=== PATIENT | female | born 1945 | race Caucasian/White ===

== ENCOUNTER 2019-12-03 14:42 | Inpatient (IN) ==
[2019-12-03] MEDS ORDERED: NS 0.9% 1000 ml BAG 1,000 ML IV ONE ×2 (14:45→14:46)
[2019-12-03] MEDS ORDERED: Alteplase (100 mg Vial) 100 mg VIAL ONE (14:54)
[2019-12-03] MEDS ORDERED: Labetalol IV 5 MG/ML 20 ml VIAL ONE (14:55)
[2019-12-03 15:02] LABS: ABS Basophils 0.1 10^3/ul (0-0.2); ABS Eosinophils 0.2 10^3/ul (0-0.6); ABS Lymphocytes 1.8 10^3/ul (1.0-4.8); ABS Monocytes 0.5 10^3/ul (0-0.8); ABS Neutrophils 5.8 10^3/ul (1.5-7.7); Eosinophil % 2.5 %; Hematocrit 40 % (35-47); Hemoglobin 14.1 g/dL (12.0-16.0); Lymphocyte % 21.6 %; Mean Corpuscular HGB Conc 35 g/dL (31-36); Mean Corpuscular Hemoglobin 29 pg (27-31); Mean Corpuscular Volume 83 fL (80-97); Mean Platelet Volume 6.9 fL (7.4-10.4); Platelet Count 316 10^3/uL (150-450); Red Blood Count 4.86 10^6 /uL (3.70-4.87); Red Cell Distribution Width 14 % (10-15); White Blood Count 8.4 10^3/uL (3.5-10.8)
[2019-12-03] MEDS ORDERED: Iodixanol (CONTRAST) 320 MG/ML 100 ML SDV IV ONE (15:05)
[2019-12-03] MEDS ORDERED: Labetalol IV 5 MG/ML 20 ml VIAL IV PUSH ONE (15:07)
[2019-12-03 15:15] LABS: Activated Partial Thrombo Time 29.4 seconds (26.0-38.0); INR 1.11 (0.82-1.09)
[2019-12-03 15:26] LABS: Albumin 4.2 g/dL (3.2-5.2); Albumin/Globulin Ratio 1.6 (1-3); BUN/Creatinine Ratio 17.9 (8-20); Calcium 9.6 mg/dL (8.6-10.3); EGFR African American 103.5 (>60); EGFR Non-African American 85.6 (>60); Globulin 2.7 g/dL (2-4); HDL Cholesterol 40.6 mg/dL; Potassium 3.5 mmol/L (3.5-5.0); Total Bilirubin 0.4 mg/dL (0.2-1.0); Total Protein 6.9 g/dL (6.4-8.9)
[2019-12-03] MEDS ORDERED: Alteplase (100 mg Vial) 100 MG in Premix IV 100 ML IV ONE (15:41)
[2019-12-03] MEDS ORDERED: niCARdipine 0.1MG/ML IVPREMIX 20 MG/200 ML BAG IV SCH ×2 (16:00→16:47)
[2019-12-03] MEDS: Lactated Ringers 1000 ml BAG 1,000 ML IV SCH ×2 (16:20→23:43)
[2019-12-03 16:45] LABS: Urine Appearance Clear; Urine Bilirubin Negative (Negative); Urine Blood Negative (Negative); Urine Color Straw; Urine Glucose Negative (Negative); Urine Ketones Trace (Negative); Urine Nitrite Negative (Negative); Urine Protein Negative (Negative); Urine Specific Gravity 1.016 (1.010-1.030); Urine Urobilinogen Negative (Negative)
[2019-12-03 17:56] LABS: TSH Ultra Thyroid Stim Horm 3.41 mcIU/mL (0.34-5.60)
[2019-12-03] MEDS ORDERED: Norepinephrine 16MCG/ML IVPRE 4,000 MCG/250 ML BAG IV ONE (22:59)
[2019-12-03] MEDS ORDERED: Lactated Ringers 500 ml BAG 500 ML IV ONE (23:31)
[2019-12-04 04:13] LABS: Hematocrit 38 % (35-47); Hemoglobin 13.1 g/dL (12.0-16.0); Mean Corpuscular HGB Conc 34 g/dL (31-36); Mean Corpuscular Hemoglobin 28 pg (27-31); Mean Corpuscular Volume 83 fL (80-97); Mean Platelet Volume 6.8 fL (7.4-10.4); Platelet Count 296 10^3/uL (150-450); Red Blood Count 4.61 10^6 /uL (3.70-4.87); Red Cell Distribution Width 15 % (10-15); White Blood Count 9.8 10^3/uL (3.5-10.8)
[2019-12-04 04:32] LABS: Albumin 3.1 g/dL (3.2-5.2); Calcium 8.4 mg/dL (8.6-10.3); Total Bilirubin 0.4 mg/dL (0.2-1.0)
[2019-12-04 04:38] LABS: Albumin/Globulin Ratio 1.3 (1-3); BUN/Creatinine Ratio 18.5 (8-20); EGFR African American 132.8 (>60); EGFR Non-African American 109.8 (>60); Globulin 2.3 g/dL (2-4); Total Protein 5.4 g/dL (6.4-8.9)
[2019-12-04] MEDS ORDERED: Lactated Ringers 1000 ml BAG 1,000 ML IV SCH (05:48)
[2019-12-04] MEDS ORDERED: NS 0.9% 500 ml BAG 500 ML IV SCH (06:00)
[2019-12-04] MEDS ORDERED: Lactated Ringers 500 ml BAG 500 ML IV SCH (06:00)
[2019-12-04] MEDS: NS 0.9% 1000 ml BAG 1,000 ML IV SCH ×3 (06:23→20:53)
[2019-12-04 07:11] LABS: Magnesium 1.6 mg/dL (1.9-2.7)
[2019-12-04] MEDS ORDERED: Magnesium Sulf 4 GM/100 ML IV 4,000 MG/100 ML BAG IVPB ONE (07:38)
[2019-12-04] MEDS ORDERED: Acetaminophen IV 1 GM/100ML 1,000 MG/100 ML VIAL IVPB ONE (09:19)
[2019-12-04] MEDS ORDERED: Gadoteridol (CONTRAST) 279.3 MG/ML 10 ML IV ONE (10:35)
[2019-12-04] MEDS ORDERED: oxyCODONE/Acetamin 5/325 mg TAB PO PRN (14:52)
[2019-12-04] MEDS ORDERED: hydrALAZINE 20 mg/ml 1 ML Vial IV IV SLOW PU ONE (15:36)
[2019-12-04] MEDS: Morphine 2 MG/ML SYRINGE IV PRN ×2 (16:51→19:18)
[2019-12-04] MEDS ORDERED: Ondansetron 4 mg VIAL 2 MG/ML 2 ml VIAL IV PRN (19:14)
[2019-12-05] MEDS ORDERED: hydrALAZINE 20 mg/ml 1 ML Vial IV IV SLOW PU ONE (03:02)
[2019-12-05] MEDS: NS 0.9% 1000 ml BAG 1,000 ML IV SCH (03:50)
[2019-12-05 05:37] LABS: BUN/Creatinine Ratio 21.2 (8-20); Calcium 7.9 mg/dL (8.6-10.3); EGFR African American 138.7 (>60); EGFR Non-African American 114.6 (>60); Magnesium 2.1 mg/dL (1.9-2.7); Phosphorus 2.8 mg/dL (2.5-5.0); Potassium 3.3 mmol/L (3.5-5.0)
[2019-12-05] MEDS ORDERED: Potassium Chlor 20 meq TAB.ER PO ONE (06:37)
[2019-12-05] MEDS ORDERED: Metoprolol Tartrate 5 mg VIAL 5 ml VIAL (1 mg/ml) IV PRN (08:55)
[2019-12-05] MEDS ORDERED: Adenosine 3 MG/ML 2 ml VIAL (6 mg) ONE (08:57)
[2019-12-05] MEDS ORDERED: Metoprolol Tartrate 5 mg VIAL 5 ml VIAL (1 mg/ml) ONE (08:57)
[2019-12-05] MEDS: Morphine 2 MG/ML SYRINGE IV PRN (09:45)
[2019-12-05] MEDS ORDERED: oxyCODONE/Acetamin 5/325 mg TAB PO PRN (10:44)
[2019-12-05] MEDS: hydrALAZINE 20 mg/ml 1 ML Vial IV IV SLOW PU PRN (15:47)
[2019-12-06] MEDS: hydrALAZINE 20 mg/ml 1 ML Vial IV IV SLOW PU PRN (00:07)
[2019-12-06] MEDS: Morphine 2 MG/ML SYRINGE IV PRN (01:37)
[2019-12-06 08:01] LABS: Calcium 8.6 mg/dL (8.6-10.3); Magnesium 1.9 mg/dL (1.9-2.7); Potassium 3.8 mmol/L (3.5-5.0)
[2019-12-06 08:07] LABS: BUN/Creatinine Ratio 23.6 (8-20); EGFR Non-African American 107.5 (>60)
[2019-12-06] MEDS ORDERED: Potassium Chlor 20 meq TAB.ER PO ONE (14:02)
[2019-12-06] MEDS ORDERED: Senna TAB 8.6 mg TAB PO PRN (15:43)
[2019-12-06] MEDS ORDERED: Magnesium Hydroxide LIQ 30 ML UDC PO PRN (15:43)
[2019-12-06] MEDS ORDERED: Magnesium Hydroxide LIQ 30 ML UDC PO SCH (21:00)
[2019-12-06] MEDS: Heparin 5000 UNITS/ML 1 mL VIAL SUBCUT SCH (21:26)
[2019-12-07 06:34] LABS: ABS Basophils 0.1 10^3/ul (0-0.2); ABS Eosinophils 0.3 10^3/ul (0-0.6); ABS Lymphocytes 1.6 10^3/ul (1.0-4.8); ABS Monocytes 0.6 10^3/ul (0-0.8); ABS Neutrophils 6.2 10^3/ul (1.5-7.7); Eosinophil % 3.6 %; Hematocrit 36 % (35-47); Hemoglobin 12.6 g/dL (12.0-16.0); Lymphocyte % 17.9 %; Mean Corpuscular HGB Conc 35 g/dL (31-36); Mean Corpuscular Hemoglobin 29 pg (27-31); Mean Corpuscular Volume 83 fL (80-97); Mean Platelet Volume 7.1 fL (7.4-10.4); Platelet Count 269 10^3/uL (150-450); Red Blood Count 4.33 10^6 /uL (3.70-4.87); Red Cell Distribution Width 15 % (10-15); White Blood Count 8.7 10^3/uL (3.5-10.8)
[2019-12-07 08:23] LABS: Calcium 8.3 mg/dL (8.6-10.3); Magnesium 2.1 mg/dL (1.9-2.7); Potassium 3.7 mmol/L (3.5-5.0)
[2019-12-07 08:29] LABS: BUN/Creatinine Ratio 26.2 (8-20); EGFR African American 115.4 (>60); EGFR Non-African American 95.4 (>60)
[2019-12-07] MEDS: Heparin 5000 UNITS/ML 1 mL VIAL SUBCUT SCH (09:11)
[2019-12-07 11:27] VITALS: BP 169/85
== END 2019-12-07 13:39 | DRG 45 ==
LOC: ED 14:42 → ICU 16:01 → MEDTELE 12-05 15:19
PROVIDERS: ADMIT Internal Medicine Critical Care Medicine; ATTEND Student in an Organized Health Care Education/Training Program

== ENCOUNTER 2019-12-07 11:57 | Inpatient (IN) ==
[2019-12-07] MEDS ORDERED: Senna TAB 8.6 mg TAB PO PRN (12:09)
[2019-12-07] MEDS ORDERED: Magnesium Hydroxide LIQ 30 ML UDC PO PRN (12:09)
[2019-12-07] MEDS: Heparin 5000 UNITS/ML 1 mL VIAL SUBCUT SCH (21:00)
[2019-12-08 04:59] LABS: ABS Basophils 0.1 10^3/ul (0-0.2); ABS Eosinophils 0.4 10^3/ul (0-0.6); ABS Lymphocytes 1.3 10^3/ul (1.0-4.8); ABS Monocytes 0.6 10^3/ul (0-0.8); ABS Neutrophils 6.5 10^3/ul (1.5-7.7); Eosinophil % 4.3 %; Hematocrit 35 % (35-47); Hemoglobin 12.3 g/dL (12.0-16.0); Lymphocyte % 15.2 %; Mean Corpuscular HGB Conc 35 g/dL (31-36); Mean Corpuscular Hemoglobin 29 pg (27-31); Mean Corpuscular Volume 83 fL (80-97); Mean Platelet Volume 7.1 fL (7.4-10.4); Platelet Count 253 10^3/uL (150-450); Red Blood Count 4.19 10^6 /uL (3.70-4.87); Red Cell Distribution Width 15 % (10-15); White Blood Count 8.8 10^3/uL (3.5-10.8)
[2019-12-08 05:03] LABS: Albumin 3.4 g/dL (3.2-5.2); Calcium 8.3 mg/dL (8.6-10.3); Potassium 3.5 mmol/L (3.5-5.0); Total Bilirubin 0.5 mg/dL (0.2-1.0)
[2019-12-08 05:09] LABS: Albumin/Globulin Ratio 1.5 (1-3); BUN/Creatinine Ratio 25.4 (8-20); EGFR African American 119.9 (>60); EGFR Non-African American 99.1 (>60); Globulin 2.3 g/dL (2-4); Total Protein 5.7 g/dL (6.4-8.9)
[2019-12-08] MEDS: Aspirin EC 325 mg TAB.EC PO SCH (07:55)
[2019-12-08] MEDS: Heparin 5000 UNITS/ML 1 mL VIAL SUBCUT SCH ×2 (07:59→20:24)
[2019-12-09] MEDS: Aspirin EC 325 mg TAB.EC PO SCH (08:17)
[2019-12-09] MEDS: Heparin 5000 UNITS/ML 1 mL VIAL SUBCUT SCH ×2 (08:19→21:19)
[2019-12-09] MEDS: Al Hydrox/Mg Hydrox/Simet LIQ 30 ML UDC PO PRN (15:21)
[2019-12-10 07:17] LABS: Albumin 3.2 g/dL (3.2-5.2); Calcium 8.2 mg/dL (8.6-10.3); Total Bilirubin 0.5 mg/dL (0.2-1.0)
[2019-12-10 07:21] LABS: ABS Basophils 0.1 10^3/ul (0-0.2); ABS Eosinophils 0.3 10^3/ul (0-0.6); ABS Lymphocytes 1.4 10^3/ul (1.0-4.8); ABS Monocytes 0.8 10^3/ul (0-0.8); ABS Neutrophils 7.2 10^3/ul (1.5-7.7); Eosinophil % 3.3 %; Hematocrit 35 % (35-47); Hemoglobin 11.8 g/dL (12.0-16.0); Lymphocyte % 14.7 %; Mean Corpuscular HGB Conc 34 g/dL (31-36); Mean Corpuscular Hemoglobin 29 pg (27-31); Mean Corpuscular Volume 86 fL (80-97); Mean Platelet Volume 7.3 fL (7.4-10.4); Platelet Count 253 10^3/uL (150-450); Red Blood Count 4.09 10^6 /uL (3.70-4.87); Red Cell Distribution Width 15 % (10-15); White Blood Count 9.8 10^3/uL (3.5-10.8)
[2019-12-10 07:23] LABS: Albumin/Globulin Ratio 1.3 (1-3); BUN/Creatinine Ratio 23.2 (8-20); EGFR African American 127.4 (>60); EGFR Non-African American 105.3 (>60); Globulin 2.4 g/dL (2-4); Total Protein 5.6 g/dL (6.4-8.9)
[2019-12-10] MEDS: Aspirin EC 325 mg TAB.EC PO SCH (09:04)
[2019-12-10] MEDS: Heparin 5000 UNITS/ML 1 mL VIAL SUBCUT SCH ×2 (09:04→20:50)
[2019-12-10 19:43] LABS: Urine Appearance Cloudy; Urine Bilirubin Negative (Negative); Urine Blood 2+ (Negative); Urine Color Yellow; Urine Glucose Negative (Negative); Urine Ketones Negative (Negative); Urine Nitrite Positive (Negative); Urine Protein Negative (Negative); Urine Specific Gravity 1.004 (1.010-1.030); Urine Urobilinogen Negative (Negative)
[2019-12-10 19:46] LABS: Urine Bacteria 3+ (Absent); Urine Red Blood Cell 3+(>10/hpf) (Absent); Urine Squamous Epithelial Cell Present (Absent); Urine White Blood Cell 3+(>20/hpf) (Absent)
[2019-12-11] MEDS: Sulfamethox/Trimethoprim DS TAB 800/160 mg PO SCH ×3 (00:15→21:18)
[2019-12-11] MEDS: Aspirin EC 325 mg TAB.EC PO SCH (08:39)
[2019-12-11] MEDS: Heparin 5000 UNITS/ML 1 mL VIAL SUBCUT SCH ×2 (08:40→21:20)
[2019-12-12] MEDS: Sulfamethox/Trimethoprim DS TAB 800/160 mg PO SCH ×2 (08:58→20:50)
[2019-12-12] MEDS: Aspirin EC 325 mg TAB.EC PO SCH (09:00)
[2019-12-12] MEDS: Heparin 5000 UNITS/ML 1 mL VIAL SUBCUT SCH ×2 (09:00→20:44)
[2019-12-13] MEDS: Sulfamethox/Trimethoprim DS TAB 800/160 mg PO SCH ×2 (08:29→20:51)
[2019-12-13] MEDS: Aspirin EC 325 mg TAB.EC PO SCH (08:30)
[2019-12-13] MEDS: Heparin 5000 UNITS/ML 1 mL VIAL SUBCUT SCH ×2 (08:30→20:48)
[2019-12-14] MEDS: Heparin 5000 UNITS/ML 1 mL VIAL SUBCUT SCH ×2 (09:17→20:03)
[2019-12-14] MEDS: Aspirin EC 325 mg TAB.EC PO SCH (09:18)
[2019-12-14] MEDS: Sulfamethox/Trimethoprim DS TAB 800/160 mg PO SCH ×2 (09:21→20:02)
[2019-12-15] MEDS: Heparin 5000 UNITS/ML 1 mL VIAL SUBCUT SCH ×2 (08:41→20:58)
[2019-12-15] MEDS: Sulfamethox/Trimethoprim DS TAB 800/160 mg PO SCH ×2 (08:41→20:58)
[2019-12-15] MEDS: Aspirin EC 325 mg TAB.EC PO SCH (08:41)
[2019-12-16] MEDS: Heparin 5000 UNITS/ML 1 mL VIAL SUBCUT SCH ×2 (09:08→20:57)
[2019-12-16] MEDS: Aspirin EC 325 mg TAB.EC PO SCH (09:10)
[2019-12-17 05:51] LABS: ABS Basophils 0.1 10^3/ul (0-0.2); ABS Eosinophils 0.4 10^3/ul (0-0.6); ABS Lymphocytes 1.5 10^3/ul (1.0-4.8); ABS Monocytes 0.6 10^3/ul (0-0.8); ABS Neutrophils 5.7 10^3/ul (1.5-7.7); Hematocrit 37 % (35-47); Hemoglobin 12.5 g/dL (12.0-16.0); Mean Corpuscular HGB Conc 34 g/dL (31-36); Mean Corpuscular Hemoglobin 29 pg (27-31); Mean Corpuscular Volume 86 fL (80-97); Mean Platelet Volume 6.9 fL (7.4-10.4); Platelet Count 347 10^3/uL (150-450); Red Blood Count 4.33 10^6 /uL (3.70-4.87); Red Cell Distribution Width 15 % (10-15); White Blood Count 8.2 10^3/uL (3.5-10.8)
[2019-12-17 06:11] LABS: Albumin 3.5 g/dL (3.2-5.2); Albumin/Globulin Ratio 1.3 (1-3); BUN/Creatinine Ratio 28.4 (8-20); Calcium 9.1 mg/dL (8.6-10.3); EGFR African American 69.2 (>60); EGFR Non-African American 57.2 (>60); Globulin 2.8 g/dL (2-4); Potassium 4.8 mmol/L (3.5-5.0); Total Bilirubin 0.3 mg/dL (0.2-1.0); Total Protein 6.3 g/dL (6.4-8.9)
[2019-12-17] MEDS: Aspirin EC 325 mg TAB.EC PO SCH (09:26)
[2019-12-17] MEDS: Heparin 5000 UNITS/ML 1 mL VIAL SUBCUT SCH ×2 (09:26→20:52)
[2019-12-18] MEDS: Aspirin EC 325 mg TAB.EC PO SCH (09:11)
[2019-12-18] MEDS: Heparin 5000 UNITS/ML 1 mL VIAL SUBCUT SCH ×2 (09:12→21:20)
[2019-12-19] MEDS: Aspirin EC 325 mg TAB.EC PO SCH (08:06)
[2019-12-19] MEDS: Heparin 5000 UNITS/ML 1 mL VIAL SUBCUT SCH ×2 (08:09→21:09)
[2019-12-19 08:10] LABS: Albumin 3.8 g/dL (3.2-5.2); Albumin/Globulin Ratio 1.3 (1-3); BUN/Creatinine Ratio 38.6 (8-20); Calcium 9.3 mg/dL (8.6-10.3); EGFR African American 98.4 (>60); EGFR Non-African American 81.4 (>60); Globulin 2.9 g/dL (2-4); Potassium 4.8 mmol/L (3.5-5.0); Total Bilirubin 0.5 mg/dL (0.2-1.0); Total Protein 6.7 g/dL (6.4-8.9)
[2019-12-19] MEDS: Al Hydrox/Mg Hydrox/Simet LIQ 30 ML UDC PO PRN (15:06)
[2019-12-20] MEDS: Heparin 5000 UNITS/ML 1 mL VIAL SUBCUT SCH ×2 (09:13→20:39)
[2019-12-20] MEDS: Aspirin EC 325 mg TAB.EC PO SCH (09:14)
[2019-12-21] MEDS: Aspirin EC 325 mg TAB.EC PO SCH (08:32)
[2019-12-21] MEDS: Heparin 5000 UNITS/ML 1 mL VIAL SUBCUT SCH ×2 (08:32→20:24)
[2019-12-22] MEDS: Aspirin EC 325 mg TAB.EC PO SCH (09:40)
[2019-12-22] MEDS: Heparin 5000 UNITS/ML 1 mL VIAL SUBCUT SCH ×2 (09:43→21:50)
[2019-12-23] MEDS: Aspirin EC 325 mg TAB.EC PO SCH (09:28)
[2019-12-23] MEDS: Heparin 5000 UNITS/ML 1 mL VIAL SUBCUT SCH ×2 (09:29→21:09)
[2019-12-24 07:48] LABS: ABS Eosinophils 0.3 10^3/ul (0-0.6); ABS Lymphocytes 1.3 10^3/ul (1.0-4.8); ABS Monocytes 0.4 10^3/ul (0-0.8); ABS Neutrophils 4.4 10^3/ul (1.5-7.7); Eosinophil % 4.1 %; Hematocrit 37 % (35-47); Hemoglobin 12.7 g/dL (12.0-16.0); Mean Corpuscular HGB Conc 35 g/dL (31-36); Mean Corpuscular Hemoglobin 29 pg (27-31); Mean Corpuscular Volume 85 fL (80-97); Mean Platelet Volume 6.8 fL (7.4-10.4); Platelet Count 323 10^3/uL (150-450); Red Blood Count 4.34 10^6 /uL (3.70-4.87); Red Cell Distribution Width 15 % (10-15); White Blood Count 6.4 10^3/uL (3.5-10.8)
[2019-12-24 08:00] LABS: Albumin 3.6 g/dL (3.2-5.2); Albumin/Globulin Ratio 1.3 (1-3); BUN/Creatinine Ratio 26.6 (8-20); EGFR African American 109.2 (>60); EGFR Non-African American 90.2 (>60); Globulin 2.8 g/dL (2-4); Potassium 4.9 mmol/L (3.5-5.0); Total Bilirubin 0.4 mg/dL (0.2-1.0); Total Protein 6.4 g/dL (6.4-8.9)
[2019-12-24] MEDS: Aspirin EC 325 mg TAB.EC PO SCH (10:33)
[2019-12-24] MEDS: Heparin 5000 UNITS/ML 1 mL VIAL SUBCUT SCH ×2 (10:34→21:08)
[2019-12-25 05:45] VITALS: BP 137/56
[2019-12-25] MEDS ORDERED: Aspirin EC 81 mg TAB.EC (enteric coated) PO SCH (09:00)
[2019-12-25] MEDS: Heparin 5000 UNITS/ML 1 mL VIAL SUBCUT SCH (10:11)
== END 2019-12-25 12:52 | disposition home or self-care (01) | DRG 58 ==
LOC: PMRU 15:22
PROVIDERS: ADMIT Physical Medicine & Rehabilitation; ATTEND Physical Medicine & Rehabilitation